=== PATIENT | male | born 1995 | race Caucasian/White ===

== ENCOUNTER 2018-12-09 00:50 | Emergency (ER) | payer OTHER ==
[~2018-12-09] VITALS: Ht 182.9 cm; Wt 79.2 kg
[2018-12-09 00:56] VITALS: BP 160/90; PULSE 71; RESP 18; Ht 182.9 cm; Wt 79.2 kg
[2018-12-09] MEDS ORDERED: AZIT250T PO (06:23)
[2018-12-09] MEDS ORDERED: PSEU-79 PO (06:23)
[2018-12-09] MEDS ORDERED: NAPR-985 PO (06:23)
[2018-12-09] MEDS ORDERED: IBUPROFEN 800 MG TAB PO ONE (06:30)
--- NOTE | 2018-12-09 15:57 | ERD ---
ER Documentation Chief Complaint Chief Complaint sore throat x 1 week HPI 23-year-old male presenting with sore throat times 1 week. He states the pain is worse at night. He took DayQuil last night but no medication today. Patient has a mild cough with no runny nose. Patient has no fever. Denies medical problems. NKDA. Surgical history denies. Social history smokes marijuana daily. ROS All systems reviewed and are negative except as per history of present illness. Medications Home Meds Active Scripts Pseudoephedrine Hcl* (Suphedrin*) 30 Mg Tablet, 30 MG PO Q6 PRN for CONGESTION, #30 TAB Prov:GLORIA TARIQ PA-C 12/09/18 Naproxen* (Naprosyn*) 500 Mg Tablet, 500 MG PO BID PRN for PAIN AND/OR INFLAMMATION, #30 TAB Prov:GLORIA TARIQ PA-C 12/09/18 Azithromycin* (Zithromax*) 250 Mg Tablet, 250 MG PO .ZPACK DIRECTED, #6 TAB TAKE 500 MG (2 TABS) THE FIRST DAY THEN 250 MG (1 TAB) DAYS 2-5 Prov:GLORIA TARIQ PA-C 12/09/18 Allergies Allergies: Coded Allergies: No Known Drug Allergies (Verified Allergy, Unknown, 12/09/18) PMhx/Soc Medical and Surgical Hx: pt denies Medical Hx, pt denies Surgical Hx History of Surgery: No Anesthesia Reaction: No Hx Neurological Disorder: No Hx Respiratory Disorders: No Hx Cardiac Disorders: No Hx Psychiatric Problems: No Hx Miscellaneous Medical Probl: No Hx Alcohol Use: No Hx Substance Use: Yes ([place] Smoker) Hx Tobacco Use: No Smoking Status: Never smoker FmHx Family History: No diabetes, No coronary disease, No other Physical Exam Vitals Vital Signs Date Temp Pulse Resp B/P (MAP) Pulse Ox O2 O2 Flow FiO2 Time Delivery Rate 12/09/18 98.0 71 18 160/90 100 00:56 (113) Physical Exam GENERAL: The patient is well-appearing, well-nourished, in no acute distress HEENT: Atraumatic. Conjunctivae are pink. Pupils equal, round, and reactive to light. There is no scleral icterus. Tympanic membranes clear bilaterally. Oropharynx WNL. NECK: C-spine is soft and supple. There is no meningismus. There is no cervical lymphadenopathy. CHEST: Clear to auscultation bilaterally. There are no rales, wheezes or rhonchi. HEART: Regular rate and rhythm. No murmurs, clicks, rubs or gallops. Results 24 hrs Current Medications Medications Dose Sig/Mitzi Start Time Status Last (Trade) Ordered Route PRN Stop Time Admin Dose Reason Admin Ibuprofen 800 mg ONCE ONCE 12/09/18 DC 12/09/18 (Motrin) PO 06:30 12/09/18 06:26 06:30 Procedures/MDM MDM: 23-year-old male presenting with sore throat. I have low suspicion for peritonsillar retropharyngeal abscess. I have low suspicion for meningitis or sepsis. Patient is discharged with supportive medications and care within 1-2 days for close evaluation. Patient has had persistent symptoms for the last week will write for antibiotics will recommend patient wait another 3-4 days before taking medications. Patient is discharged stricter precautions. All questions answered at discharge Departure Diagnosis: Primary Impression: Sore throat Condition: Stable Patient Instructions: Self-Care for Sore Throats Referrals: [facility] YOU HAVE RECEIVED A MEDICAL SCREENING EXAM AND THE RESULTS INDICATE THAT YOU DO NOT HAVE A CONDITION THAT REQUIRES URGENT TREATMENT IN THE EMERGENCY DEPARTMENT. FURTHER EVALUATION AND TREATMENT OF YOUR CONDITION CAN WAIT UNTIL YOU ARE SEEN IN YOUR DOCTORS OFFICE WITHIN THE NEXT 1-2 DAYS. IT IS YOUR RESPONSIBILITY TO MAKE AN APPOINTMENT FOR FOLOW-UP CARE. IF YOU HAVE A PRIMARY DOCTOR --you should call your primary doctor and schedule an appointment IF YOU DO NOT HAVE A PRIMARY DOCTOR YOU CAN CALL OUR PHYSICIAN REFERRAL HOTLINE AT IF YOU CAN NOT AFFORD TO SEE A PHYSICIAN YOU CAN CHOSE FROM THE FOLLOWING [facility] [id number] [facility]. [facility] [address] [facility]. [email or web address] [id number] [facility] [facility] [address] [facility]. [facility] [address] [facility] [facility]. [address] Additional Instructions: FOLLOW UP WITH YOUR PRIMARY CARE PHYSICIAN TOMORROW.Return to this facility if you are not improving as expected. GLORIA TARIQ PA-C Dec 09, 2018 15:57
== END 2018-12-09 06:29 | disposition home or self-care (01) ==
LOC: FTE 00:50
DX: J02.9 Acute pharyngitis, unspecified (principal)
CPT/HCPCS: Z7502; Z7610; 99283